=== PATIENT | male | born 1965 | race Caucasian/White ===

== ENCOUNTER 2016-02-14 03:31 | Emergency (ER) | payer OTHER ==
--- NOTE | 2016-02-14 03:44 | CPEKG ---
Heart Rate: 148 RR Interval: 405 QRSD Interval: 90 QT Interval: 296 QTC Interval: 465 QRS [place]: 88 T Wave [place]: 38 EKG Severity - ABNORMAL ECG - EKG Impression: SVT Electronically Signed By: Elie Renee 14-Feb-2016 06:03:04
[2016-02-14] MEDS ORDERED: ADENOSINE 6 MG/2 ML VIAL ONE (03:48)
--- NOTE | 2016-02-14 03:57 | CPEKG ---
Heart Rate: 97 RR Interval: 619 P-R Interval: 176 QRSD Interval: 94 QT Interval: 344 QTC Interval: 437 P [place]: 65 QRS [place]: 78 T Wave [place]: 48 EKG Severity - NORMAL ECG - EKG Impression: SINUS RHYTHM Electronically Signed By: Elie Renee 14-Feb-2016 06:00:29
--- NOTE | 2016-02-14 04:03 | EDPHY ---
HPI/HX/ROS/PE/MDM Narrative: Chief complaint: Heart race HPI: 51-year-old male woke this morning with the sensation of his heart racing with some mild chest tightness. Does not have a history of the same. No real chest pain. Some mild shortness of breath. No fevers or chills. Has a family history of SVT in his mother has required chemical cardioversion in the past. He has no other medical history. Takes no medications. No allergies to medications. He does not smoke, does use occasional marijuana, does drink occasional alcohol. States he had 1 mixed drink last evening. No recent illness. ROS: 10 point Review of Systems is negative except as noted in the HPI. Physical exam: Gen: Awake, Alert, No Distress HEENT: Nose: no rhinorrhea Eyes: PERRLA, EOMI Mouth: Moist mucosa Neck: Supple, no JVD Chest: nontender, lungs clear to auscultation Heart: Tachycardic with a rate Abd: Soft, non-tender, no guarding Back: no CVA tenderness, no midline tenderness Ext: no edema, non-tender Skin: no rash Neuro: CN II-XII intact, Sensation grossly intact, Strength 5/5 in bilateral upper and lower extremities ED Course: ECG: There complex tachycardia with a rate of 150, regular, no discernible P lays. Consistent with SVT. ECG 2. Colon status post chemical cardioversion, sinus rhythm with a rate of 97 , normal intervals, no ST or T-wave changes 51-year-old male presenting with a narrow complex regular tachycardia with palpitations. ECG shows SVT. Patient was chemically cardioverted with adenosine. He required initially 6 mg rapid push which was unsuccessful. He then received 12 mg rapid IV push with successful conversion back to sinus rhythm. He was monitored emergency department had no recurrence of his tachycardia. Serum electrolytes were obtained with no significant abnormalities. Patient is discharged with follow up with primary care physician. - Data Points Laboratory Results: Laboratory Results 02/14/16 03:53 02/14/16 03:53 Sodium 145 H mEq/L (134-144) Potassium 3.5 mEq/L (3.5-5.2) Chloride 103 mEq/L (97-110) Carbon Dioxide 27 mEq/l (22-31) Anion Gap 15 mEq/L (8-16) BUN 20 mg/dL (7-23) Creatinine 1.0 mg/dL (0.7-1.3) Estimated GFR > 60 Glucose 103 H mg/dL (70-100) Calcium 9.8 mg/dL (8.5-10.4) Medications Given: Discontinued Medications Adenosine (Adenosine) 6 mg IVP EDNOW ONE Stop: 02/14/16 04:14 Last Admin: 02/14/16 03:45 Dose: 6 mg Adenosine (Adenosine) 12 mg IVP EDNOW ONE Stop: 02/14/16 04:15 Last Admin: 02/14/16 03:48 Dose: 12 mg General Time Seen by Provider: 02/14/16 03:57 Initial Vital Signs: Initial Vital Signs Temperature (C) 36.6 C 02/14/16 03:35 Heart Rate 165 H 02/14/16 03:35 Respiratory Rate 20 02/14/16 03:35 Blood Pressure 175/135 H 02/14/16 03:35 O2 Sat (%) 97 02/14/16 03:35 O2 Delivery Mode Room Air Allergies/Adverse Reactions: No Known Allergies Allergy (Unverified 02/14/16 03:35) Home Medications: Medication Instructions Recorded NK [No Known Home Meds] 02/14/16 Departure - Departure Disposition: Home, Routine, Self-Care Clinical Impression: Supraventricular tachycardia Condition: Good Instructions: Supraventricular Tachycardia (ED) Additional Instructions: Try to avoid large amounts of caffeine. Follow up with your primary care doctor in 3-4 days. Return to the emergency department for any concerns. Referrals: Cody Allan [Primary Care Provider] - As per Instructions
[2016-02-14] MEDS ORDERED: ADENOSINE 6 MG/2 ML VIAL IVP ONE ×2 (04:13→04:14)
[2016-02-14 04:26] LABS: ANION GAP 15 mEq/L (8-16); CALCIUM 9.8 mg/dL (8.5-10.4); CARBON DIOXIDE 27 mEq/l (22-31); CHLORIDE 103 mEq/L (97-110); GLOMERULAR FILTRATION RATE > 60; GLUCOSE 103 mg/dL (70-100); POTASSIUM 3.5 mEq/L (3.5-5.2); SODIUM 145 mEq/L (134-144)
[2016-02-14 05:00] VITALS: BP 138/84; PULSE 76; RESP 16; TEMP 97.3; O2SAT 95
--- NOTE | 2016-02-14 08:26 | CPEKG ---
Heart Rate: 151 RR Interval: 397 QRSD Interval: 88 QT Interval: 296 QTC Interval: 470 P [place]: 0 QRS [place]: 150 T Wave [place]: 29 EKG Severity - ABNORMAL ECG - EKG Impression: SVT Electronically Signed By: Sun Buenrostro 14-Feb-2016 22:03:24
== END 2016-02-14 05:00 | disposition home or self-care (01) ==
DX: I47.1 Supraventricular tachycardia (principal)
CPT/HCPCS: 96374; J0153

== ENCOUNTER 2018-03-07 03:30 | Emergency (ER) | payer OTHER ==
[2018-03-07 04:19] LABS: PLATELET COUNT 322 10^3/uL (150-400)
[2018-03-07] MEDS ORDERED: ADENOSINE 6 MG/2 ML VIAL ONE ×2 (04:19→04:28)
[2018-03-07] MEDS ORDERED: ADENOSINE 6 MG/2 ML VIAL IVP ONE (04:27)
[2018-03-07] MEDS ORDERED: NS 1,000 ML IV ONE (04:30)
--- NOTE | 2018-03-07 04:48 | EDPHY ---
H & P Stated Complaint: rapid HR since 2330 Time Seen by Provider: 03/07/18 03:47 HPI/ROS: HPI The patient presents with palpitations which began at about 11:30 p.m. Last night and awoke him from sleep. They have been constant ever since. He has tried to resolve them on his own but has been unable to so comes to the emergency department. He does not have any shortness of breath or chest pain. He has a prior history of SVT, presented to the emergency department about 2 years ago and required adenosine for cardioversion. He had a 2nd episode about 2 months ago and was able to convert at home. He has never seen advertising display rotator. REVIEW OF SYSTEMS 10 systems were reviewed and negative with the exception of the elements mentioned in the history of present illness. PMHx: Prior history of SVT Soc Hx: Housed, no caffeine use, no alcohol use recently PHYSICAL General Appearance: Alert, no distress Eyes: Pupils equal and round no pallor or injection ENT, Mouth: Mucous membranes moist Respiratory: There are no retractions, lungs are clear to auscultation Cardiovascular: Tachycardic rate Gastrointestinal: Abdomen is soft and non-tender, no masses, bowel sounds normal Neurological: A&O, moves all extremities Skin: Warm and dry, no rashes Musculoskeletal: Neck is supple non tender Extremities: symmetrical, full range of motion Psychiatric: Patient is oriented X 3, there is no agitation Source: Patient Exam Limitations: No limitations - Personal History Current Tetanus/Diphtheria Vaccine: Unsure - Medical/Surgical History Hx Asthma: No Hx Chronic Respiratory Disease: No Hx Diabetes: No Hx Cardiac Disease: No Hx Renal Disease: No Hx Cirrhosis: No Hx Alcoholism: No Hx HIV/AIDS: No Hx Splenectomy or Spleen Trauma: No Other PMH: back pain, - Social History Smoking Status: Never smoked Constitutional: Initial Vital Signs O2 Sat (%) 99 03/07/18 03:30 O2 Delivery Mode Room Air O2 (L/minute) 2 Allergies/Adverse Reactions: No Known Allergies Allergy (Unverified 02/14/16 03:35) Home Medications: Medication Instructions Recorded Oxycodone HCl 03/07/18 Medical Decision Making - Diagnostics EKG Interpretation: EKG: Complete interpretation has been separately recorded in the [employer] archive. Summary impression: Narrow complex tachycardia, no P waves visualized Differential Diagnosis: This is a 53-year-old man with prior history of SVT, 1 episode 2 years ago which required adenosine and a 2nd episode about 2 months ago which spontaneously converted at home who now presents with palpitations for the last several hours which started spontaneously with no associated chest pain or shortness of breath. He tried to resolve these at home though was unable so comes into the emergency department. Here initial EKG shows SVT. We tried vagal maneuvers here with passive leg raise without any success. The patient received adenosine total of 12 mg with spontaneous conversion to a normal sinus rhythm. He felt well afterwards. He has not been seen by Cardiology, however at this time I will refer him given his recurrent episodes. He is happy with this plan. Labs were unremarkable. He does not have any chest pain. - Data Points Laboratory Results: Laboratory Results 03/07/18 04:00 03/07/18 04:00 Medications Given: Discontinued Medications Adenosine (Adenosine) 12 mg IVP EDNOW ONE Stop: 03/07/18 04:28 Last Admin: 03/07/18 04:27 Dose: 12 mg Sodium Chloride (Ns) 1,000 mls @ 0 mls/hr IV ONCE ONE; Wide Open PRN Reason: Protocol Stop: 03/07/18 04:31 Last Admin: 03/07/18 04:25 Dose: 1,000 mls Departure - Departure Disposition: Home, Routine, Self-Care Clinical Impression: Supraventricular tachycardia Condition: Good Instructions: Supraventricular Tachycardia (ED), Valsalva Maneuver (ED) Additional Instructions: Please make sure to drink plenty of fluids over the next several days. You should follow up with the advertising display rotator I have listed below are 1 that is recommended by your primary care doctor. Referrals: Navdeep Pollard MD [Medical Doctor] - As per Instructions
[2018-03-07 05:00] VITALS: BP 124/83
--- NOTE | 2018-03-07 06:01 | CPEKG ---
Test Reason : OPEN Blood Pressure : / mmHG Vent. Rate : 163 BPM Atrial Rate : 157 BPM P-R Int : 000 ms QRS Dur : 109 ms QT Int : 275 ms P-R-T Axes : 000 062 021 degrees QTc Int : [address] depression, probably rate related Confirmed by Malgorzata Monae ([id number]) on 03/07/2018 6:00:38 AM Referred By: Malgorzata Monae Confirmed By:Malgorzata Monae
--- NOTE | 2018-03-10 06:31 | CPEKG ---
Test Reason : OPEN Blood Pressure : / mmHG Vent. Rate : 102 BPM Atrial Rate : 101 BPM P-R Int : 172 ms QRS Dur : 093 ms QT Int : 335 ms P-R-T Axes : 066 063 049 degrees QTc Int : 437 ms Sinus tachycardia Confirmed by Malgorzata Monae ([id number]) on 03/10/2018 6:31:01 AM Referred By: Malgorzata Monae Confirmed By:Malgorzata Monae
== END 2018-03-07 05:00 | disposition home or self-care (01) ==
DX: I47.1 Supraventricular tachycardia (principal); E86.9 Volume depletion, unspecified
CPT/HCPCS: 96374; J0153